=== PATIENT | male | born 1960 | race Caucasian/White ===

== ENCOUNTER 2019-11-16 16:30 | Outpatient (RCR) | payer OTHER, SELFPAY ==
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
--- NOTE | 2019-10-03 19:43 | HP.PTREVAL ---
Dr. Phillip Andrews MD, It has been my pleasure to treat TJ VERA over the last 14 visits for CERVICAL STRAIN,THORACIC BACK PAIN,THORACIC BACK SPRAIN. Please see the progress note below for an update on the physical therapy plan of care! Subjective: Pain is at base of cervical spine ,NO BARDALES ,looking up down is somewaht pain full. Better since starting therapy Objective/Function: POSTURE: head foward. PALAPTION: tender occiput. NEURO: denies paratghesia/tingling. CERVICAL ROM: flexion min/mod loss,extension mod loss,rfotation/lateral flexion mod loss. MMT: BUE grossly 4/5 shoulders 4-/5 Plan Plan: cont with poc 2xweek for 4weeks. PT INTERVENTION MODALTIES FOR PAIN, MANUAL THERAPY, CERVICAL TRACTION, GRADED ROM, CERVICAL/POSTURAL EX'S Goals Goal 1:: Patient to be Independant with HEP. Goal Time Frame: 4-6 Weeks Goal Progress: Progressing Goal 2:: Patient improve posture for ADLS'/job demnads. Goal Time Frame: 4-6 Weeks Goal Progress: Progressing Goal 3:: Patient improve cervical ROM for function of recovery Goal Time Frame: 4-6 Weeks Goal Progress: Progressing Goal 4:: Patient to decrease cervical pain by 70% or > to improve function and QOL.(update goals) Goal Time Frame: 4-6 Weeks Goal Progress: Progressing Goal 5:: Patient to increase neck owestry sore by 7 points or > to improve QOL.(udpate goalsL Goal Time Frame: 4-6 Weeks Anticipated Interventions Patient/Client Instruction: Educate patient on: Condition, Plan of Care For the Purpose of:: To decrease pain, To increase ROM, To improve muscle performance and motor function, To improve ability to perform ADL's, To increase tolerance to activity/condition/position, To improve performance and independence with ADL's, To improve ability of physical actions for home/community/work/leisure, To improve health of tissue, To decrease soft tissue restriction, To increase flexibility/ROM, To improve ability to perform tasks related to life management Therapeutic Exercise to Include: Strength training, Postural training, Flexibilty training, Active ROM For the Purpose of:: To decrease pain, To increase ROM, To improve muscle performance and motor function, To improve ability to perform ADL's, To increase tolerance to activity/condition/position, To improve ability of physical actions for home/community/work/leisure, To improve health of tissue, To decrease soft tissue restriction, To increase flexibility/ROM, To improve ability to perform tasks related to life management Manual Therapy Techniques to Include: Mobilization Comment: CERVICAL TRACTION For the Purpose of:: To decrease pain, To increase ROM, To improve nutrient delivery to tissue, To increase oxygenation perfusion, To improve health of tissue, To decrease soft tissue restriction TENS: Yes IF ES: Yes Cryotherapy (ice pack, ice massage): Yes Thermo therapy (hot pack): Yes Ultrasound (thermal/non thermal): Yes For the Purpose of:: To decrease pain, To increase ROM, To improve health of tissue, To decrease soft tissue restriction, To increase flexibility/ROM Please do not hesitate to contact me at [phone] by phone or if you have questions or concerns regarding this new plan of care! Sincerely, Buddy Flaherty, PT, Cert MDT, OCS
--- NOTE | 2020-03-09 10:20 | HP.PT.NRP ---
TJ VERA was seen in my office for initial evaluation on 08/29/19. The following Plan of Care was established for this patient: Initial Frequency: 2x /Week Initial Duration: 4 Weeks Patient/Client Instruction: Educate patient on: Condition, Plan of Care For the Purpose of:: To decrease pain, To increase ROM, To improve muscle performance and motor function, To improve ability to perform ADL's, To increase tolerance to activity/condition/position, To improve performance and independence with ADL's, To improve ability of physical actions for home/community/work/leisure, To improve health of tissue, To decrease soft tissue restriction, To increase flexibility/ROM, To improve ability to perform tasks related to life management Therapeutic Exercise to Include: Strength training, Postural training, Flexibilty training, Active ROM For the Purpose of:: To decrease pain, To increase ROM, To improve muscle performance and motor function, To improve ability to perform ADL's, To increase tolerance to activity/condition/position, To improve ability of physical actions for home/community/work/leisure, To improve health of tissue, To decrease soft tissue restriction, To increase flexibility/ROM, To improve ability to perform tasks related to life management Manual Therapy Techniques to Include: Mobilization Comment: CERVICAL TRACTION For the Purpose of:: To decrease pain, To increase ROM, To improve nutrient delivery to tissue, To increase oxygenation perfusion, To improve health of tissue, To decrease soft tissue restriction TENS: Yes IF ES: Yes Cryotherapy (ice pack, ice massage): Yes Thermo therapy (hot pack): Yes Ultrasound (thermal/non thermal): Yes For the Purpose of:: To decrease pain, To increase ROM, To improve health of tissue, To decrease soft tissue restriction, To increase flexibility/ROM This patient was last seen in our office . Pertinent comments regarding their Physical therapy will appear below: Patient seen for neck pain focusing on strengtrhening ,postural ex's,and ICTX ,thus is d/c At this point I will be discontinuing this patient from physical therapy. I would be happy to see this patient again in the future if found appropriate by the physician. Thank you! Buddy Flaherty, PT, Cert MDT, OCS
== END 2019-11-16 19:00 | disposition home or self-care (01) ==
LOC: PT 16:30
PROVIDERS: PCP Family Medicine; Referring Provider Family Medicine; Visit Provider Family Medicine
DX: S16.1XXD Strain of muscle, fascia and tendon at neck level, subsequent encounter (principal); S23.9XXD Sprain of unspecified parts of thorax, subsequent encounter; M54.2 Cervicalgia; M54.6 Pain in thoracic spine
CPT/HCPCS: 97012; 97014; 97035; 97110; 97140; 97162; 97530; G0283

== ENCOUNTER 2021-10-08 20:17 | Emergency (ER) | payer OTHER, SELFPAY ==
[2021-10-08 20:18] VITALS: BP 139/112; PULSE 131; RESP 22; TEMP 38.4; O2SAT 97; BMI 33.8
--- NOTE | 2021-10-08 20:38 | EKG12_ITS ---
Test Reason : FEVER Blood Pressure : / mmHG Vent. Rate : 119 BPM Atrial Rate : 119 BPM P-R Int : 138 ms QRS Dur : 106 ms QT Int : 318 ms P-R-T Axes : 023 -16 012 degrees QTc Int : 447 ms Sinus tachycardia Incomplete right bundle branch block Confirmed by KAITLYNN ARTIS, JJ ([id number]), rewrite editor JERONIMO TYLER ([id number]) on 10/10/2021 11:02:36 AM Referred By: MARIPOSA Confirmed By:JJ CALDERÓN MD
[2021-10-08 20:39] VITALS: BP 139/112; PULSE 131; RESP 22; TEMP 38.4; O2SAT 97
--- NOTE | 2021-10-08 20:40 | EX.ED.DYSGE1 ---
HPI History of Present Illness Chief Complaint: Fever Informant: patient and spouse/S.O. Narrative Narrative: Patient presents with a fever that started this afternoon. 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 He went up to see a surgeon in [place] today. He had no fever then. Surgeon looked at his wound and everything looked really good to him. Patient has some discomfort at the wound but is not really changing significantly. There is not been drainage. On the way home he had a fever so he stopped in to find out why. Patient states he ate a full meal. He is not having any change in appetite. He has no headache. No congestion. He has a mild scratchy throat that he had after surgery but it is improving. He was told this was because of the anesthesia and tube. He has no cough or trouble breathing. No abdominal pain. No nausea vomiting diarrhea. No urinary symptoms. No rashes. No leg pain or swelling. No known exposures. He states he feels fine he just has a fever. Past medical history is GERD and melanoma new Medications are what sounds like Prilosec Is no allergies Surgery as above Lives with [facility] Home Medications No Known/Unobtainable [No Known Home Medications] 10/27/14 [History Last Taken Unknown] Allergy/AdvReac Type Severity Reaction Status Date / Time No Known Allergies Allergy Verified 10/08/21 20:17 Social History Smoking Status: Never smoker ROS ROS ED Constitutional Constitutional ED: Reports fever(s); Denies sweats Eyes Eyes: Denies change in vision ENT ENT ED: Reports sore throat; Denies ear pain or rhinorrhea Cardiovascular Cardiovascular: Denies chest pain or palpitations Respiratory/Chest Respiratory/Chest: Denies cough, dyspnea, dyspnea on exertion or sputum Gastrointestinal Gastrointestinal: Denies abdominal pain, diarrhea, nausea or vomiting Genitourinary Genitourinary ED: Denies dysuria or urinary frequency Musculoskeletal Musculoskeletal: Denies arthralgias or myalgias Integumentary Denies rash Neurologic Neurologic: Denies headache(s) Endocrine Endocrinology: Denies polydipsia or polyuria Hematologic/Lymphatic Hematologic/Lymphatic: Denies easy bleeding or easy bruising Allergic/Immunologic Allergic/Immunologic ED: Denies urticaria EXAM Physical Exam Const Vital Signs: 10/08/21 20:18 10/08/21 20:39 10/08/21 20:57 Temperature 101.1 F H 101.1 F H Temperature Source Temporal Oral Pulse Rate 131 H 131 H Respiratory Rate 22 H 22 H Respiratory Effort Normal Respiratory Pattern Normal Blood Pressure 139/112 H 139/112 H Blood Pressure Mean 121 121 Pulse Ox 97 97 Oxygen Delivery Method Room Air Room Air 10/08/21 21:17 10/08/21 21:20 10/08/21 22:56 Temperature 9.6 F L 99.6 F H 98.4 F Temperature Source Oral Oral Oral Pulse Rate 106 H 106 H 107 H Respiratory Rate 18 18 18 Respiratory Effort Respiratory Pattern Blood Pressure 140/89 H 140/89 H 147/86 H Blood Pressure Mean 106 106 106 Pulse Ox 93 93 96 Oxygen Delivery Method Room Air Room Air Room Air Positive well nourished and well developed General Appearance ED: well developed and NAD HEENT Reports moist mucous membranes HEENT Narrative: No notable exudate. Negative for trauma Eyes EOMs intact bilaterally General Eye ED: Negative for scleral icterus Neck supple Chest Wall inspection of chest normal Resp normal respiratory effort and clear to auscultation bilaterally Resp Narrative: No pain with a deep breath. Auscultation: Negative for rales, rhonchi or wheezes Cardio regular rhythm Rate: tachycardic Rhythm: Negative for abnormal rhythm GI normal to inspection, nondistended, normoactive bowel sounds, non-tender and non-distended Palpation: soft Back/Spine no CVA tenderness Extremity normal to inspection General Extremety ED: Negative for edema or tenderness General Extremity: Negative for edema Neuro oriented x3 Neuro Narrative: Patient sitting on the bed with his feet hanging over. He looks comfortable. He is making jokes is a, in the room. Sensorium / Orientation: alert Psych mental status grossly normal Skin no rashes or lesions noted Skin Narrative: Patient has extensive suture line around the left shoulder. There is an area where the drain was removed earlier today but there is no actual drainage at this time. There is no notable erythema or drainage of the wound. No crepitance. No swelling. No tenderness. Overall looks like it is healing well. MDM MDM MDM Narrative Medical decision making narrative: This dictation was done after the patient left due to computer system being down again and unable to document. Details of our discussion and MDM and decision making may be missed because of this. Patient CBC showed mild elevation of white count at 14.5. Remainder of CBC including platelets were normal. Electrolytes showed no acute process. Lactate was negative. Urine was clean. Chest x-ray shows no acute process. Wound is still doing well. Patient will not be treated with antibiotics. Cultures are sent. We discussed if he develops any specific symptoms he should return. He should follow-up with his surgeon as scheduled. Any redness increased pain drainage or other problems with the wound he should seek immediate repeat evaluation. Patient states he still feels well. He ate chicken and [employer]'s and states he could have done that if he was actually sick. His heart rate is down and his temperature is down. Lab Data Attestation: I reviewed the patient's lab results. Labs: Laboratory Results - last 24 hr 10/08/21 10/08/21 10/08/21 20:45 20:45 20:45 WBC 14.5 H RBC 5.47 Hgb 15.5 Hct 46.3 MCV 84.6 MCH 28.3 MCHC 33.5 RDW Std Deviation 38.5 RDW Coeff of Vargas 12.5 Plt Count 273 MPV 9.9 Immature Gran % (Auto) 0.800 Neut % (Auto) 81.5 H Lymph % (Auto) 7.9 L [place] % (Auto) 9.0 Eos % (Auto) 0.5 Baso % (Auto) 0.3 Absolute Neuts (auto) 11.8 H Absolute Lymphs (auto) 1.15 Nucleated RBC % 0 Sodium 137 Potassium 4.1 Chloride 103 Carbon Dioxide 27.0 Anion Gap 7 BUN 14 Creatinine 1.19 Estim Creat Clear Calc 63.07 Est GFR (MDRD) Af Amer 80 Est GFR (MDRD) Non-Af 66 BUN/Creatinine Ratio 11.8 Glucose 138 H Lactic Acid 1.9 Calcium 9.0 Urine Color Urine Clarity Urine pH Ur Specific Warren Urine Protein Urine Glucose (UA) Urine Ketones Urine Occult Blood Urine Nitrite Urine Bilirubin Urine Urobilinogen Ur Leukocyte Esterase Urine RBC Urine WBC Ur Squamous Epith Cells Urine Bacteria Urine Mucus 10/08/21 21:50 WBC RBC Hgb Hct MCV MCH MCHC RDW Std Deviation RDW Coeff of Vargas Plt Count MPV Immature Gran % (Auto) Neut % (Auto) Lymph % (Auto) [place] % (Auto) Eos % (Auto) Baso % (Auto) Absolute Neuts (auto) Absolute Lymphs (auto) Nucleated RBC % Sodium Potassium Chloride Carbon Dioxide Anion Gap BUN Creatinine Estim Creat Clear Calc Est GFR (MDRD) Af Amer Est GFR (MDRD) Non-Af BUN/Creatinine Ratio Glucose Lactic Acid Calcium Urine Color Yellow Urine Clarity Clear Urine pH 8.0 Ur Specific [place] 1.010 Urine Protein Negative Urine Glucose (UA) Normal Urine Ketones Negative Urine Occult Blood Negative Urine Nitrite Negative Urine Bilirubin Negative Urine Urobilinogen Normal Ur Leukocyte Esterase 25 H Urine RBC 0 SEEN Urine WBC 0 SEEN Ur Squamous Epith Cells 0 SEEN Urine Bacteria 0 SEEN Urine Mucus 0 SEEN Radiography Diagnostic Testing: Clinical Impression(s) from Imaging Studies Chest X-Ray 10/08/21 21:27 IMPRESSION: 1. Mild cardiomegaly with a left ventricular cardiac configuration, but no evidence of heart failure. 2. No evidence of active cardiopulmonary disease. 3. No pneumonia, pneumonitis or bronchitis. Electronically Signed: Dorian Humphreys MD at 21:44 EDT , Discharge Plan Triage Chief Complaint: Fever ED Provider: Adrián Cam Dx/Rx/DC Orders Clinical Impression: Fever Instructions: ED FUO Adult Prescriptions: No Action No Known Home Medications Primary Care Provider: Phillip Andrews Referrals: Phillip Andrews MD [Primary Care Provider] - 1-2 Days if not improving Disposition Disposition: Home, Self Care Discharge Date/Time: 10/08/21 23:08
[2021-10-08] MEDS: Acetaminophen 500 MG Tablet 1000 MG PO (20:49)
[2021-10-08] MEDS: 0.9% Normal Saline 1,000 ML 1000 ML IV (20:56)
[2021-10-08 21:17] VITALS: BP 140/89; PULSE 106; RESP 18; TEMP -12.4; TEMP 9.6; O2SAT 93
[2021-10-08 21:20] VITALS: BP 140/89; PULSE 106; RESP 18; TEMP 37.6; O2SAT 93
--- NOTE | 2021-10-08 21:27 | RAD_ITS ---
STUDY: PORTABLE AP UPRIGHT CHEST X-RAY OF 2127 HOURS ON 10/08/2021 REASON FOR EXAM: 61-year-old male with fever. TECHNIQUE: A single view portable AP upright chest x-ray was performed per protocol. COMPARISON: None. FINDINGS: Surgical skin clips in the left shoulder region. Normal osseous structures. Mild cardiomegaly with a left ventricular cardiac configuration, but no evidence of heart failure. No pulmonary infiltrates, atelectasis, effusion, or pulmonary mass lesions. No pneumonia, pneumonitis, or bronchitis. No subdiaphragmatic abnormalities. RAD/Chest 1 View (Portable) IMPRESSION: 1. Mild cardiomegaly with a left ventricular cardiac configuration, but no evidence of heart failure. 2. No evidence of active cardiopulmonary disease. 3. No pneumonia, pneumonitis or bronchitis. Electronically Signed: Dorian Humphreys MD at 21:44 EDT ,
[2021-10-08 21:32] LABS: Absolute Lymphocyte Count 1.15 X10^3/uL (0.83-4.51); Absolute Neutrophil Count 11.8 X10^3/uL (2.0-7.7); Basophil# 0.05 X10^3/uL; Basophil% 0.3 % (0-1); Eosinophil# 0.07 X10^3/uL; Eosinophils% 0.5 % (0-5); Hematocrit 46.3 % (40-54); Hemoglobin 15.5 g/dL (13.0-16.5); Lymphocyte # 1.15 X10^3/ul (0.83-4.51); Lymphocyte % 7.9 % (19-41); Mean Corp Hgb Conc 33.5 g/dL (32-36); Mean Corpuscular Hgb 28.3 pg (27.0-32.0); Mean Corpuscular Volume 84.6 fL (80-94); Mean Platelet Vol. 9.9 fl (6.2-12.0); NRBC Flagged by Analyzer 0 % (0-5); Neutrophil # 11.81 X10^3/uL (2.7-7.7); Neutrophil % 81.5 % (47-70); Platelet Count 273 K/mm3 (150-450); RBC Distribution Width CV 12.5 % (11.6-14.6); RBC Distribution Width SD 38.5 fl (35.1-43.9); Red Blood Count 5.47 M/mm3 (4.6-6.2); White Blood Count 14.5 K/mm3 (4.4-11.0)
[2021-10-08 21:48] LABS: Anion Gap 7 (5-15); BUN 14 mg/dL (7-18); BUN/Creat Ratio 11.8 RATIO (10-20); Chloride 103 mmol/L (98-107); Creatinine, Serum 1.19 mg/dL (0.70-1.30); EST Glomerular Filtration Rate 66 mL/min (>60); Est Glom Filt Rate - Afr Amer 80 mL/min (>60); Estimated Creatinine Clearance 63.07 ml/min; Glucose 138 mg/dL (74-106); Lactic Acid 1.9 mmol/L (0.4-1.9); Potassium 4.1 mmol/L (3.5-5.1); Sodium Level 137 mmol/L (136-145)
[2021-10-08 22:02] LABS: Bacteria 0 SEEN /hpf (None Seen); Mucous, Urine 0 SEEN /hpf (<or=2+); Red Blood Cells-Urine 0 SEEN /hpf (0-5); Squamous Epithelial Cells - UA 0 SEEN /hpf (0-5); White Blood Cells 0 SEEN /hpf (0-5)
[2021-10-08 22:07] LABS: Glucose, Dipstick Normal (Normal); Ketone-Dipstick Negative (Negative); Leukocyte Esterase-Dipstick 25 /ul (Negative); Nitrite-Dipstick Negative (Negative); Occult Blood-Urine Negative /ul (Negative); Protein-Dipstick Negative (Negative); Urine Bilirubin Dipstick Negative (Negative); Urine Urobilinogen Normal (Normal)
[2021-10-08 22:08] LABS: Color, Urine Yellow (Yellow); Urine Clarity Clear (Clear)
[2021-10-08 22:56] VITALS: BP 147/86; PULSE 107; RESP 18; TEMP 36.9; O2SAT 96
== END 2021-10-08 23:08 | disposition home or self-care (01) ==
PROVIDERS: Emergency Provider Emergency Medicine; PCP Family Medicine; Visit Provider Emergency Medicine
DX: R50.9 Fever, unspecified (principal); Z20.822 Contact with and (suspected) exposure to COVID-19; K21.9 Gastro-esophageal reflux disease without esophagitis; Z85.820 Personal history of malignant melanoma of skin; Z98.890 Other specified postprocedural states
CPT/HCPCS: 71045; 80048; 81001; 83605; 85025; 87040; 87086; 87088; 87428; 93005; 96360; 96361; 99283; 99284; J7030; A4216

== ENCOUNTER 2021-10-09 23:09 | Emergency (ER) | payer OTHER, SELFPAY ==
[2021-10-09 23:10] VITALS: BP 160/104; PULSE 104; RESP 16; TEMP 37.7; O2SAT 95; BMI 33.4
[2021-10-09 23:12] VITALS: BP 160/104; PULSE 104; RESP 16; TEMP 37.7; O2SAT 95
[2021-10-09 23:18] VITALS: PULSE 104; RESP 15; O2SAT 98
--- NOTE | 2021-10-09 23:36 | EX.ED.DYSGE1 ---
HPI History of Present Illness Chief Complaint: Wound Check Narrative Narrative: 61-year-old male presenting for evaluation for postop wound check. 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 He states that the drain was pulled today. Patient notes he still having a little bit of drainage around the site. He was seen yesterday in the emergency room and have been having fevers. He had a septic work-up which was negative. He did have a little bit of a leukocytosis. He was not sent home on antibiotics. He tried to call his surgeon today however he was unable to get a hold of him. He states that he called several times and left messages. Patient continues to have low-grade fevers today. He states he does not feel unwell. He is eating and drinking normally. Making normal urine and stool. He denies cough or shortness of breath. He denies nausea or vomiting. He denies GI or complaints. Today he has new drainage from the sites. Its more erythematous around the galina that are holding his sites together. He states he called his primary care physician who states that he would refer this to the surgeon and did not call in antibiotics. PFSH [facility] Home Medications clindamycin HCl 150 mg capsule 450 mg PO TID 10 days #90 caps 10/09/21 [Rx Last Taken Unknown] Allergy/AdvReac Type Severity Reaction Status Date / Time No Known Allergies Allergy Verified 10/09/21 23:12 Social History Smoking Status: Never smoker ROS [facility] ED Constitutional Constitutional ED: Reports fever(s) Eyes Eyes: Denies change in vision or diplopia ENT ENT ED: Denies rhinorrhea or sore throat Cardiovascular Cardiovascular: Denies chest pain or palpitations Respiratory/Chest Respiratory/Chest: Denies cough or dyspnea Gastrointestinal Gastrointestinal: Denies abdominal pain or constipation Genitourinary Genitourinary ED: Denies dysuria or hematuria Musculoskeletal Musculoskeletal: Denies arthralgias Integumentary Reports other Details: Drainage from surgical site on left posterior shoulder. Increasing erythema. Neurologic Neurologic: Denies headache(s) Psychiatric Psychiatric: Denies anxiety or depression EXAM Physical Exam Const Vital Signs: 10/09/21 23:10 10/09/21 23:18 10/09/21 23:12 Temperature 99.9 F H 99.9 F H Temperature Source Temporal Temporal Pulse Rate 104 H 104 H 104 H Respiratory Rate 16 15 16 Blood Pressure 160/104 H 160/104 H Blood Pressure Mean 122 122 Pulse Ox 95 98 95 Oxygen Delivery Method Room Air Room Air Room Air Positive well nourished General Appearance ED: NAD HEENT Reports moist mucous membranes Eyes PERRL and EOMs intact bilaterally Chest Wall inspection of chest normal Resp normal respiratory effort Cardio regular rate and regular rhythm Neuro oriented x3 and CN's II-XII intact bilaterally Sensorium / Orientation: alert Motor Exam: strength 5/5 throughout Psych mental status grossly normal Skin Skin Narrative: Incision site appears to be intact. There is no dehiscence of the wound. I do not appreciate any drainage although there is some erythema along the margins of the staple line in the mid shoulder. No crepitance. MDM MDM MDM Narrative Medical decision making narrative: Patient now presenting with some drainage which I do not appreciate on exam however do appreciate erythema and warmth overlying this area. The wound is not dehisced. There is no fluctuance. Patient states he feels generally well although he is unable to get antibiotics from his primary care provider and his surgeon did not return his phone call. He had a work-up yesterday which I reviewed. I suspect he probably has a postop wound infection. I do believe this needs to be opened but I will start him on clindamycin. He was counseled on need to call his surgeon tomorrow. He was given the first dose in the ER and given his prescription from the hospital so we did not have to miss any doses or have late doses. Patient amenable to this plan. Impression: 1. Postop wound check?infection 2. Febrile illness Lab Data Attestation: I reviewed the patient's lab results. Discharge Plan Triage Chief Complaint: Wound Check ED Provider: Ryan Freitas Dx/Rx/DC Orders Instructions: ED Wound Check (Infection) Prescriptions: New clindamycin HCl 150 mg capsule 450 mg PO TID 10 Days Qty: 90 0RF Primary Care Provider: Phillip Andrews Referrals: Phillip Andrews MD [Primary Care Provider] - Disposition Disposition: Home, Self Care
[2021-10-09] MEDS: Clindamycin HCl 150 MG Capsule 450 MG PO (23:41)
== END 2021-10-09 23:45 | disposition home or self-care (01) ==
LOC: ED 23:38
PROVIDERS: Emergency Provider Student in an Organized Health Care Education/Training Program; PCP Family Medicine; Visit Provider Student in an Organized Health Care Education/Training Program
DX: T81.40XA Infection following a procedure, unspecified, initial encounter (principal); R50.9 Fever, unspecified; Y83.8 Other surgical procedures as the cause of abnormal reaction of the patient, or of later complication, without mention of misadventure at the time of the procedure; Z85.820 Personal history of malignant melanoma of skin; Z98.890 Other specified postprocedural states
CPT/HCPCS: 99283

== ENCOUNTER → 2022-03-31 | Outpatient (CLI) | payer OTHER, SELFPAY ==
[2022-03-31 17:54] LABS: Creatinine, Serum 1.02 mg/dL (0.70-1.30); EST Glomerular Filtration Rate 79 mL/min (>60); Est Glom Filt Rate - Afr Amer 95 mL/min (>60)
== END | disposition home or self-care (01) ==
LOC: LABSPEC 16:37
PROVIDERS: PCP Family Medicine
DX: C43.9 Malignant melanoma of skin, unspecified (principal)
CPT/HCPCS: 36415; 82565

== ENCOUNTER → 2022-09-26 | Outpatient (CLI) | payer OTHER, SELFPAY ==
[2022-09-26 17:55] LABS: Creatinine, Serum 1.21 mg/dL (0.70-1.30); EST Glomerular Filtration Rate 65 mL/min (>60); Est Glom Filt Rate - Afr Amer 78 mL/min (>60)
== END | disposition home or self-care (01) ==
LOC: LAB 16:18
PROVIDERS: PCP Family Medicine
DX: C43.9 Malignant melanoma of skin, unspecified (principal)
CPT/HCPCS: 36415; 82565

== ENCOUNTER → 2023-03-23 | Outpatient (CLI) | payer OTHER, SELFPAY ==
[2023-03-23 16:46] LABS: Hematocrit 47.3 % (40-54); Hemoglobin 15.4 g/dL (13.0-16.5); Mean Corp Hgb Conc 32.6 g/dL (32-36); Platelet Count 265 K/mm3 (150-450); RBC Distribution Width CV 12.8 % (11.6-14.6); RBC Distribution Width SD 39.9 fl (35.1-43.9); White Blood Count 8.4 K/mm3 (4.4-11.0)
[2023-03-23 17:33] LABS: ALB/GLOB Ratio 1.2 RATIO (0.9-2.4); AST(SGOT) 18 U/L (15-37); Alanine Aminotransfer ALT/SGPT 35 U/L (16-61); Albumin, Serum 4.1 g/dL (3.2-5.0); Alkaline Phosphatase 78 U/L (45-117); Anion Gap 5 (5-15); BUN 17 mg/dL (7-18); BUN/Creat Ratio 14.8 RATIO (10-20); Calcium,Total 9.4 mg/dL (8.5-10.1); Chloride 105 mmol/L (98-107); Creatinine, Serum 1.15 mg/dL (0.70-1.30); EST Glomerular Filtration Rate 68 mL/min (>60); Est Glom Filt Rate - Afr Amer 83 mL/min (>60); Globulin 3.5 g/dL (2.2-4.2); Glucose 106 mg/dL (74-106); LDH 210 U/L (87-241); Potassium 4.1 mmol/L (3.5-5.1); Protein, Total 7.6 g/dL (6.4-8.2); Sodium Level 138 mmol/L (136-145)
== END | disposition home or self-care (01) ==
LOC: LAB 16:29
PROVIDERS: PCP Family Medicine
DX: C43.9 Malignant melanoma of skin, unspecified (principal)
CPT/HCPCS: 36415; 80053; 83615; 85027